=== PATIENT | male | born 1990 | race Caucasian/White ===

== ENCOUNTER 2017-04-25 22:41 | Emergency (ER) | payer BC, OTHER ==
--- NOTE | 2017-04-25 23:38 | ED NURSING NOTES ---
Clinical Report - Nurses [facility] [address] [place] [address] 04/25/2017 22:41 Patient: MOUSTAPHA CARDONA TRIAGE Triage time 22:45. Acuity: LEVEL 4. Chief Complaint: SKIN LESION. --22:57 Cheryl Malik R.N. 22:49 04/25/17. BP: 126/71 taken on the left arm, while lying. HR: 109 (regular and tachycardic). RR: 18. O2 saturation: 99% on room air. Temp: 99.3 F (oral). Pain level now: 02/02. --22:57 Cheryl Malik R.N. Weight: 83.9 kg stated. Height/Length: 73 inches Per Patient. BMI: 24.4. --22:52 Cheryl Malik R.N. Medications None. --22:53 Cheryl Malik R.N. Allergies No Known Drug Allergy. --22:53 Cheryl Malik R.N. History Arrived by private vehicle. Historian: patient. Unaccompanied. Primary physician ([place]). Reported as located on the right arm, right hand, left arm and left hand. Onset. (Sunday). It is described as painful. ( states poked by shrubs and thorns has several areas on hands and arms red and draining). No fever, muscle aches, headache, cough or difficulty breathing. No itching or weakness. PAST MEDICAL HX: Immunizations: up-to-date. SOCIAL HX: Smoker- current status unknown (electronic cigarrettes). History of drug use. Is a recovering addict. (Jan 18 2017). No alcohol use. He has not traveled outside the [place] The patient was exposed to MRSA. The patient was not exposed to tuberculosis, influenza, chicken pox, meningitis, VRE, C-diff, SARS, Kevin flu, H1N1 flu, Ebola or MERS. (history of MRSA). ABUSE ASSESSMENT: No report of abuse. SELF HARM ASSESSMENT: A self harm assessment was performed. The patient answered "no" to the question "Have you recently felt down, depressed, or hopeless?", "Have you noticed less interest or pleasure in doing things?", "Do you have thoughts of harming or killing yourself?", "Are you here because you tried to hurt yourself?", "Have you ever tried to hurt yourself before today?", "Have you recently had thoughts about harming or killing others?" and "Do you have any dangerous items in your possession?". FALL RISK ASSESSMENT: Fall risk assessment completed. No fall risk identified. NUTRITIONAL RISK ASSESSMENT: The nutritional risk assessment revealed no deficiencies. FUNCTIONAL ASSESSMENT: Functional assessment: no impairments noted. LEARNING NEEDS ASSESSMENT: The learning needs assessment revealed no barriers. SKIN INTEGRITY ASSESSMENT: Skin integrity risk assessment completed. No skin integrity risk identified. --22:57 Cheryl Malik R.N. PROBLEMS: Hypertension. Abscess. Iv Drug Use. Dental Caries. Dental Pain. --22:54 Cheryl Malik R.N. ADDITIONAL SURGERIES: Knee Surgery. Left knee . [place] teeth. --22:54 Cheryl Malik R.N. Interventions ID band on patient. --22:57 Cheryl Malik R.N. PHYSICAL ASSESSMENT Ambulatory to room. GENERAL / NEURO / PSYCH: Alert. The patient does not appear to be in acute distress. Oriented X 4. HEENT: Pupils equal, round and reactive to light. Mucous membranes are pink. RESPIRATORY: Respirations not labored. Breath sounds within normal limits. CVS: Capillary refill less than 2 seconds. Pulses within normal limits. GI / : Abdomen nontender. SKIN: Skin is warm, dry and non-tender. Multiple small skin lesions with erythema, tenderness and increased warmth on the right arm, right hand, left arm and left hand. Normal skin turgor. --22:58 Cheryl Malik R.N. NURSING PROGRESS NOTES Patient gowned. Two patient identifiers checked. Call light placed in reach. Side rails up x 1. Bed placed in lowest position. Brakes of bed on. Patient ready for evaluation- chart flagged. --22:59 Cheryl Malik R.N. ( MD in room for evaluation). --23:32 Cheryl Malik R.N. DISPOSITION / DISCHARGE Condition at departure: unchanged and stable. No learning barriers present. Discharge instructions provided and reviewed with the patient. Reviewed medication(s) side effects, precautions, dosing and course information. Prescription(s) given to the patient. Patient verbalized understanding. Written instructions provided in Wolof. The patient was discharged home and unaccompanied at time of discharge. He left the Emergency Department ambulatory and via private vehicle. Patient driving. --00:00 Cheryl Malik R.N. 23:56 04/25/17. BP: deferred. HR: deferred. RR: deferred. O2 saturation: deferred. Temp: deferred. Pain level now deferred. --00:00 Cheryl Malik R.N. Departure time: 23:47. --00:00 Cheryl Malik R.N. Locked/Released at 04/26/2017 0:00 by Cheryl Malik R.N.
--- NOTE | 2017-04-25 23:38 | ED CLINICAL REPORT ---
Clinical Report - Physicians/Mid Levels [facility] [address] [place] [address] 04/25/2017 22:41 Patient: MOUSTAPHA CARDONA Time Seen: 22:52. Arrived- By private vehicle. Historian- patient. HISTORY OF PRESENT ILLNESS Chief Complaint: (multiple lesions). This started several days ago and is still present. It was gradual in onset and has been constant. It has been located on the right upper extremity, left upper extremity, right lower extremity and left lower extremity. A possible cause has been identified (blackberry bushes). REVIEW OF SYSTEMS No chills, fever, sweats, calf pain or chest pain. No cough, difficulty breathing, pedal edema, palpitations or abdominal pain. No constipation, diarrhea, nausea, vomiting or urinary problems. All systems otherwise negative, except as recorded above. PAST HISTORY Problems: Hypertension. Abscess. Iv Drug Use. Dental Caries. Dental Pain. Additional Surgeries: Knee Surgery. Left knee . [place] teeth. Medications: None. Allergies: No Known Drug Allergy. SOCIAL HISTORY History of IV drug use. FAMILY HISTORY No significant family medical history. ADDITIONAL NOTES The nursing notes have been reviewed. PHYSICAL EXAM Vital Signs: 04/25/2017 22:49 BP: 126/71. HR: 109. RR: 18. O2 saturation: 99%. Temp: 99.3 F. Pain level now: 3/10. Have been reviewed. Appearance: Alert. No acute distress. Eyes: Pupils equal, round and reactive to light. ENT: Pharynx normal. Neck: Neck supple. CVS: Normal heart rate and rhythm. Heart sounds normal. Respiratory: Breath sounds normal. Abdomen: Nontender. Skin: Medium area of cellulitis with tenderness, erythema and warmth to right forearm, right hand, right leg, left forearm, left hand and left leg. Extremities: No calf tenderness. PROGRESS AND PROCEDURES Course of Care: Patient is stable. Patient/family counseled. Old medical records ordered. Disposition: Discharged. Condition: stable. CLINICAL IMPRESSION Cellulitis of the right forearm, right hand, right lower leg, left forearm, left hand and left lower leg. INSTRUCTIONS Warnings: Further evaluation is necessary. GENERAL WARNINGS: Return or contact your physician immediately if your condition worsens or changes unexpectedly, if not improving as expected, or if other problems arise. Prescription Medications: Bactrim DS 800 mg / 160 mg: take 1 tablet orally every 12 hours for 10 days. No refill. Substitution is permissible. Follow-up: Follow up with your doctor in about five days. Call for an appointment. Understanding of the discharge instructions verbalized by patient. (Electronically signed by Charles Dawson MD 04/26/2017 2:45)
--- NOTE | 2017-04-25 23:38 | ED CLINICAL REPORT ---
Clinical Report - Physicians/Mid Levels [facility] [address] [place] [address] 04/25/2017 22:41 Patient: MOUSTAPHA CARDONA Time Seen: 22:52. Arrived- By private vehicle. Historian- patient. HISTORY OF PRESENT ILLNESS Chief Complaint: (multiple lesions). This started several days ago and is still present. It was gradual in onset and has been constant. It has been located on the right upper extremity, left upper extremity, right lower extremity and left lower extremity. A possible cause has been identified (blackberry bushes). REVIEW OF SYSTEMS No chills, fever, sweats, calf pain or chest pain. No cough, difficulty breathing, pedal edema, palpitations or abdominal pain. No constipation, diarrhea, nausea, vomiting or urinary problems. All systems otherwise negative, except as recorded above. PAST HISTORY Problems: Hypertension. Abscess. Iv Drug Use. Dental Caries. Dental Pain. Additional Surgeries: Knee Surgery. Left knee . [place] teeth. Medications: None. Allergies: No Known Drug Allergy. SOCIAL HISTORY History of IV drug use. FAMILY HISTORY No significant family medical history. ADDITIONAL NOTES The nursing notes have been reviewed. PHYSICAL EXAM Vital Signs: 04/25/2017 22:49 BP: 126/71. HR: 109. RR: 18. O2 saturation: 99%. Temp: 99.3 F. Pain level now: 3/10. Have been reviewed. Appearance: Alert. No acute distress. Eyes: Pupils equal, round and reactive to light. ENT: Pharynx normal. Neck: Neck supple. CVS: Normal heart rate and rhythm. Heart sounds normal. Respiratory: Breath sounds normal. Abdomen: Nontender. Skin: Medium area of cellulitis with tenderness, erythema and warmth to right forearm, right hand, right leg, left forearm, left hand and left leg. Extremities: No calf tenderness. PROGRESS AND PROCEDURES Course of Care: Patient is stable. Patient/family counseled. Old medical records ordered. Disposition: Discharged. Condition: stable. CLINICAL IMPRESSION Cellulitis of the right forearm, right hand, right lower leg, left forearm, left hand and left lower leg. INSTRUCTIONS Warnings: Further evaluation is necessary. GENERAL WARNINGS: Return or contact your physician immediately if your condition worsens or changes unexpectedly, if not improving as expected, or if other problems arise. Prescription Medications: Bactrim DS 800 mg / 160 mg: take 1 tablet orally every 12 hours for 10 days. No refill. Substitution is permissible. Follow-up: Follow up with your doctor in about five days. Call for an appointment. Understanding of the discharge instructions verbalized by patient. (Electronically signed by Charles Dawson MD 04/26/2017 2:45)
--- NOTE | 2017-04-26 02:46 | ED MAR SUMMARY ---
..... Medication Administration Record [facility] [address] [place], [place] [id number] Patient: MOUSTAPHA CARDONA Visit ID: [id number] 27y, M Weight: 83.9 kg Height/Length: 73 in BMI: 24.4 ALLERGIES: No Known Drug Allergy
--- NOTE | 2017-04-26 02:46 | ED MAR SUMMARY ---
..... Medication Administration Record [facility] [address], [place] [id number] Patient: MOUSTAPHA CARDONA Visit ID: [id number] 27y, M Weight: 83.9 kg Height/Length: 73 in BMI: 24.4 ALLERGIES: No Known Drug Allergy
--- NOTE | 2017-04-26 02:46 | ED DISCHARGE INSTRUCTIONS ---
Patient: MOUSTAPHA CARDONA General Instructions [facility] VisitID: [id number] [place] [address] 27y, M Registration Date/Time: 04/25/2017 Cellulitis of the right forearm, right hand, right lower leg, left forearm, left hand and left lower leg. INSTRUCTIONS Warnings: Further evaluation is necessary. GENERAL WARNINGS: Return or contact your physician immediately if your condition worsens or changes unexpectedly, if not improving as expected, or if other problems arise. Prescription Medications: Bactrim DS 800 mg / 160 mg: take 1 tablet orally every 12 hours for 10 days. No refill. Substitution is permissible. Follow-up: Follow up with your doctor in about five days. Call for an appointment. Understanding of the discharge instructions verbalized by patient. ADDITIONAL INFORMATION Sulfamethoxazole, Trimethoprim Oral tablet What is this medicine? SULFAMETHOXAZOLE; TRIMETHOPRIM or SMX-TMP (suhl fuh meth OK ozzie zohl; trye METH oh prim) is a combination of a sulfonamide antibiotic and a second antibiotic, trimethoprim. It is used to treat or prevent certain kinds of bacterial infections. It will not work for colds, flu, or other viral infections. How should I use this medicine? Take this medicine by mouth with a full glass of water. Follow the directions on the prescription label. Take your medicine at regular intervals. Do not take it more often than directed. Do not skip doses or stop your medicine early. Talk to your mortgage loan interviewer regarding the use of this medicine in children. Special care may be needed. This medicine has been used in children as young as 2 months of age. What side effects may I notice from receiving this medicine? Side effects that you should report to your doctor or health post acute care nurse as soon as possible: allergic reactions like skin rash or hives, swelling of the face, lips, or tongue breathing problems fever or chills, sore throat irregular heartbeat, chest pain joint or muscle pain pain or difficulty passing urine red pinpoint spots on skin redness, blistering, peeling or loosening of the skin, including inside the mouth unusual bleeding or bruising unusually weak or tired yellowing of the eyes or skin Side effects that usually do not require medical attention (report to your doctor or health post acute care nurse if they continue or are bothersome): diarrhea dizziness headache loss of appetite nausea, vomiting nervousness What may interact with this medicine? Do not take this medicine with any of the following medications: aminobenzoate potassium dofetilide metronidazole This medicine may also interact with the following medications: TIEN inhibitors like benazepril, enalapril, lisinopril, and ramipril cyclosporine digoxin diuretics indomethacin medicines for diabetes methenamine methotrexate phenytoin potassium supplements pyrimethamine sulfinpyrazone tricyclic antidepressants warfarin What if I miss a dose? If you miss a dose, take it as soon as you can. If it is almost time for your next dose, take only that dose. Do not take double or extra doses. Where should I keep my medicine? Keep out of the reach of children. Store at room temperature between 20 to 25 degrees C (68 to 77 degrees F). Protect from light. Throw away any unused medicine after the expiration date. What should I tell my health care provider before I take this medicine? They need to know if you have any of these conditions: anemia asthma being treated with anticonvulsants if you frequently drink alcohol containing drinks kidney disease liver disease low level of folic acid or [id number] dehydrogenase poor nutrition or malabsorption porphyria severe allergies thyroid disorder an unusual or allergic reaction to sulfamethoxazole, trimethoprim, sulfa drugs, other medicines, foods, dyes, or preservatives or trying to get breast-feeding What should I watch for while using this medicine? Tell your doctor or health post acute care nurse if your symptoms do not improve. Drink several glasses of water a day to reduce the risk of kidney problems. Do not treat diarrhea with over the counter products. Contact your doctor if you have diarrhea that lasts more than 2 days or if it is severe and watery. This medicine can make you more sensitive to the sun. Keep out of the sun. If you cannot avoid being in the sun, wear protective clothing and use a sunscreen. Do not use sun lamps or tanning beds/booths. You have been given the following additional information: Sulfamethoxazole, Trimethoprim Oral tablet (Electronically signed by Charles Dawson MD 04/26/2017 2:45)
--- NOTE | 2017-04-26 02:46 | ED MED RECONCILIATION SUMMARY ---
Patient: MOUSTAPHA CARDONA Medication Reconciliation Report [facility] VisitID: [id number] [address] [place] [address] 27y, M Registration Date/Time: 04/25/2017 Weight: 83.9 kg Height/Length: 73 in. BMI: 24.4 ALLERGIES: No Known Drug Allergy The patient's Home Medications are listed below: NONE. The source(s) of the original Home Medication information: Not obtained. The following Medications were given to the patient in the Emergency Department: None. The following Medications were prescribed to the patient: Bactrim DS 800 mg / 160 mg: take 1 tablet orally every 12 hours for 10 days. No refill. Substitution is permissible. -- Charles Dawson MD
--- NOTE | 2017-04-26 02:46 | ED MED RECONCILIATION SUMMARY ---
Patient: MOUSTAPHA CARDONA Medication Reconciliation Report [facility] VisitID: [id number] [address] [place] [address] 27y, M Registration Date/Time: 04/25/2017 Weight: 83.9 kg Height/Length: 73 in. BMI: 24.4 ALLERGIES: No Known Drug Allergy The patient's Home Medications are listed below: NONE. The source(s) of the original Home Medication information: Not obtained. The following Medications were given to the patient in the Emergency Department: None. The following Medications were prescribed to the patient: Bactrim DS 800 mg / 160 mg: take 1 tablet orally every 12 hours for 10 days. No refill. Substitution is permissible. -- Charles Dawson MD
--- NOTE | 2017-04-26 02:46 | ED DISCHARGE INSTRUCTIONS ---
Patient: MOUSTAPHA CARDONA General Instructions [facility] VisitID: [id number] [place] [address] 27y, M Registration Date/Time: 04/25/2017 Cellulitis of the right forearm, right hand, right lower leg, left forearm, left hand and left lower leg. INSTRUCTIONS Warnings: Further evaluation is necessary. GENERAL WARNINGS: Return or contact your physician immediately if your condition worsens or changes unexpectedly, if not improving as expected, or if other problems arise. Prescription Medications: Bactrim DS 800 mg / 160 mg: take 1 tablet orally every 12 hours for 10 days. No refill. Substitution is permissible. Follow-up: Follow up with your doctor in about five days. Call for an appointment. Understanding of the discharge instructions verbalized by patient. ADDITIONAL INFORMATION Sulfamethoxazole, Trimethoprim Oral tablet What is this medicine? SULFAMETHOXAZOLE; TRIMETHOPRIM or SMX-TMP (suhl fuh meth OK ozzie zohl; trye METH oh prim) is a combination of a sulfonamide antibiotic and a second antibiotic, trimethoprim. It is used to treat or prevent certain kinds of bacterial infections. It will not work for colds, flu, or other viral infections. How should I use this medicine? Take this medicine by mouth with a full glass of water. Follow the directions on the prescription label. Take your medicine at regular intervals. Do not take it more often than directed. Do not skip doses or stop your medicine early. Talk to your manufacturing chief engineer regarding the use of this medicine in children. Special care may be needed. This medicine has been used in children as young as 2 months of age. What side effects may I notice from receiving this medicine? Side effects that you should report to your doctor or health care program resident as soon as possible: allergic reactions like skin rash or hives, swelling of the face, lips, or tongue breathing problems fever or chills, sore throat irregular heartbeat, chest pain joint or muscle pain pain or difficulty passing urine red pinpoint spots on skin redness, blistering, peeling or loosening of the skin, including inside the mouth unusual bleeding or bruising unusually weak or tired yellowing of the eyes or skin Side effects that usually do not require medical attention (report to your doctor or health care program resident if they continue or are bothersome): diarrhea dizziness headache loss of appetite nausea, vomiting nervousness What may interact with this medicine? Do not take this medicine with any of the following medications: aminobenzoate potassium dofetilide metronidazole This medicine may also interact with the following medications: TIEN inhibitors like benazepril, enalapril, lisinopril, and ramipril cyclosporine digoxin diuretics indomethacin medicines for diabetes methenamine methotrexate phenytoin potassium supplements pyrimethamine sulfinpyrazone tricyclic antidepressants warfarin What if I miss a dose? If you miss a dose, take it as soon as you can. If it is almost time for your next dose, take only that dose. Do not take double or extra doses. Where should I keep my medicine? Keep out of the reach of children. Store at room temperature between 20 to 25 degrees C (68 to 77 degrees F). Protect from light. Throw away any unused medicine after the expiration date. What should I tell my health care provider before I take this medicine? They need to know if you have any of these conditions: anemia asthma being treated with anticonvulsants if you frequently drink alcohol containing drinks kidney disease liver disease low level of folic acid or [id number] dehydrogenase poor nutrition or malabsorption porphyria severe allergies thyroid disorder an unusual or allergic reaction to sulfamethoxazole, trimethoprim, sulfa drugs, other medicines, foods, dyes, or preservatives or trying to get breast-feeding What should I watch for while using this medicine? Tell your doctor or health care program resident if your symptoms do not improve. Drink several glasses of water a day to reduce the risk of kidney problems. Do not treat diarrhea with over the counter products. Contact your doctor if you have diarrhea that lasts more than 2 days or if it is severe and watery. This medicine can make you more sensitive to the sun. Keep out of the sun. If you cannot avoid being in the sun, wear protective clothing and use a sunscreen. Do not use sun lamps or tanning beds/booths. You have been given the following additional information: Sulfamethoxazole, Trimethoprim Oral tablet (Electronically signed by Charles Dawson MD 04/26/2017 2:45)
== END 2017-04-25 23:47 | disposition home or self-care (01) ==
LOC: ED SRH 22:41
DX: L03.113 Cellulitis of right upper limb (principal); L03.114 Cellulitis of left upper limb; L03.115 Cellulitis of right lower limb; L03.116 Cellulitis of left lower limb; I10 Essential (primary) hypertension; F19.10 Other psychoactive substance abuse, uncomplicated